=== PATIENT | female | born 2000 | race Caucasian/White ===

== ENCOUNTER 2022-04-12 08:08 | Emergency (ER) | payer BC, SELFPAY ==
[2022-04-12 08:19] VITALS: BP 123/77; PULSE 81; RESP 16; TEMP 37.1; O2SAT 100
--- NOTE | 2022-04-12 08:28 | ED.GENADULT ---
HPI - General Adult General Chief complaint: Urogenital-Female Stated complaint: UTI SYMPTOMS Source: patient Mode of arrival: ambulatory Limitations: no limitations History of Present Illness HPI narrative: Patient presents for evaluation of what she believes is a urinary tract infection. Over the last 2 days she is experienced urinary urgency, foul smell to her urine and cloudy appearance of the urine. She has urinary urgency without frequency or gross hematuria. She denies any fever, chills, nausea, vomiting, abdominal pain, low back pain. No vaginal discharge. LMP 03/19 through 03/24/2022. She is sexually active with one partner and uses protection. No additional complaints or concerns. Related Data Allergies Allergy/AdvReac Type Severity Reaction Status Date / Time No Known Allergies Allergy Verified 04/12/22 08:42 Review of Systems Review of Systems: CONSTITUTIONAL: Denies fever, chills, or sweats. EYES: Denies visual changes, redness, or discharge. ENT: Denies rhinorrhea, congestion, sore throat, or otalgia. CARDIOVASCULAR: Denies chest pain, palpitations, or edema. RESPIRATORY: Denies cough or dyspnea. GASTROINTESTINAL: Denies abdominal pain, nausea, vomiting, or diarrhea. GENITOURINARY: Reports urinary urgency, foul smelling urine and cloudy appearance of her urine. She denies frequency or gross hematuria SKIN: Denies rash or itching. MUSCULOSKELETAL: Denies back pain, joint pain, or myalgia. NEUROLOGIC: Denies headache, numbness, dizziness, or weakness. PSYCHIATRIC: Denies anxiety or depression. [facility] Past Medical History Medical History (Updated 04/12/22 @ 08:42 by TYLER Lovelace, ) No pertinent past medical history Surgical History Surgical History No pertinent past surgical history Family History Family History Mother Family history non-contributory Social History Social History Alcohol intake: current Alcohol use details: social Substance use: never Gender identity (if verbalized by the patient): Female Spiritual care concerns: No Exam Narrative: GENERAL: Well-appearing, well-nourished, and in no acute distress. HEAD: Normocephalic, atraumatic. EYES: PERRLA and EOMI. ENT: Nares clear, no rhinorrhea or epistaxis. Mucous membranes moist. Oropharynx without tonsillar hypertrophy exudate or other lesions. Bilateral TMs pearly laird nonbulging NECK: Supple. No adenopathy or masses. No carotid bruits or JVD CHEST: Clear to auscultation. No respiratory distress. No wheezes rales or rhonchi HEART: Regular rate and rhythm. No murmur heard. Normal peripheral pulses. ABDOMEN: Soft, nontender, nondistended, normal active bowel sounds. GENITAL: No external genital lesions. No adnexal tenderness. No cervical motion tenderness. Small amount of thick clumpy yellow discharge in vaginal vault BACK: No CVA tenderness EXTREMITIES: Normal range of motion. No edema. SKIN: Warm, dry, no rash. NEURO: No focal deficits. Alert and oriented x3. PSYCH: Normal mood and affect. Course Course Emergency Course: This is a 21-year-old female who presented for evaluation of urinary symptoms. No evidence of infection in urine today. She did have some microscopic hematuria and was advised to follow-up for that outpatient with primary care provider. She does have some vaginal discharge on exam. Discussed empiric treatment for STI, BV, vaginal candidiasis. She declined empiric treatment for STI but would like to be treated for BV and vaginal candidiasis. Prescription for Flagyl and Diflucan sent. Follow-up outpatient for further evaluation and treatment and go to the ER for intractable pain or worsening symptoms. Patient in agreement with plan of care. Level of Care: Express Care Visit Vital Signs Vital signs: Vital Si
--- NOTE | 2022-04-12 08:36 | PC.NURSE ---
0836 pelvic exam completed by provider, specimens collected. Patient tolerated well.
== END 2022-04-12 08:50 | disposition home or self-care (01) ==
PROVIDERS: Emergency Provider Nurse Practitioner
DX: N76.0 Acute vaginitis (principal); R31.29 Other microscopic hematuria; B96.20 Unspecified Escherichia coli [E. coli] as the cause of diseases classified elsewhere
CPT/HCPCS: 81003; 87070; 87077; 87086; 87186; 87491; 87591; 87661; 99214; G0463

== ENCOUNTER 2023-11-09 08:19 | Emergency (ER) | payer BC, SELFPAY ==
[2023-11-09 08:29] VITALS: BP 94/79; PULSE 83; RESP 16; TEMP 37; O2SAT 100
--- NOTE | 2023-11-09 08:42 | ED.URI ---
HPI - URI/Sore Throat General Stated Complaint: Strep Symptoms Time Seen by Provider: 11/09/23 08:42 History of Present Illness HPI Narrative: 23-year-old female presented for complaint of sore throat and mild nasal drainage. Onset 4 days. She tested negative for COVID at home yesterday. 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 states her boyfriend has similar symptoms. She denies shortness of, wheezing nausea vomiting diarrhea, fevers or chills. Related Data Allergies Allergy/AdvReac Type Severity Reaction Status Date / Time No Known Allergies Allergy Verified 04/12/22 08:42 Review of Systems Review of Systems: CONSTITUTIONAL: Denies body aches, fever, chills, or sweats. EYES: Denies visual changes, redness, or discharge. ENT: Reports sore throat Denies rhinorrhea, congestion, or otalgia. CARDIOVASCULAR: Denies chest pain, palpitations, or edema. RESPIRATORY: Denies dyspnea. GASTROINTESTINAL: Denies abdominal pain, nausea, vomiting, or diarrhea. SKIN: Denies rash, itching, or wounds. MUSCULOSKELETAL: Denies back pain, joint pain, or myalgia. NEUROLOGIC: Denies headache PMFSH Past Medical History Medical History No pertinent past medical history Surgical History Surgical History No pertinent past surgical history Family History Family History Mother Family history non-contributory Social History Social History Alcohol intake: current Alcohol use details: social Substance use: never Gender identity (if verbalized by the patient): Female Spiritual care concerns: No Exam Narrative: GENERAL: well-appearing, no acute distress. EYES: conjunctivae clear ENT: Mucous membranes moist. TMs pearly laird with normal light reflex bilaterally; no tragal tenderness. Oropharynx not erythematous; Tonsils not enlarged and without exudate. No drooling, no hoarseness, no trismus, uvula midline. No tripod positioning, hot potato voice, or soft palate swelling. NECK: Supple. No lymphadenopathy CHEST: Clear to auscultation, breath sounds equal. HEART: Regular rate and rhythm. No murmur heard. SKIN: Warm, dry, no rash. NEURO: Alert and oriented x3. Course Course Emergency Course: Patient is aware of diagnosis, understands and agrees to treatment plan. Anticipatory guidance given. Patient agrees to follow-up as directed and is aware of reasons to seek care at the emergency department. Portions of this record may have been created with voice recognition software Level of Care: Express Care Visit Vital Signs Vital signs: Vital Signs Temperature 98.6 F 11/09/23 08:29 Pulse Rate 83 11/09/23 08:29 Respiratory Rate 16 11/09/23 08:29 Blood Pressure 94/79 L 11/09/23 08:29 Pulse Oximetry 100 11/09/23 08:29 Oxygen Delivery Room Air 11/09/23 08:29 Temperature 98.6 F 11/09/23 08:29 Pulse Rate 83 11/09/23 08:29 Respiratory Rate 16 11/09/23 08:29 Blood Pressure 94/79 L 11/09/23 08:29 Pulse Oximetry 100 11/09/23 08:29 Oxygen Delivery Room Air 11/09/23 08:29 MDM - URI/Sore Throat MDM Narrative Medical decision making narrative: neg strep result reviewed with pt. Advise supportive treatments. Patient is appropriate for outpatient treatment and follow-up. Differential Diagnosis Differential diagnosis: Likely upper respiratory infection, viral infection and pharyngitis Lab Data Labs: Strep Screen Presumptive Negative *(Reference Range: Negative)* Discharge Plan Discharge Clinical Impression: Pharyngitis Qualifiers: Pharyngitis/tonsillitis etiology: unspecified etiology Qualified Code(s): J02.9 - Acute pharyngitis, unspecified Patient Disposition: Home, Self-Care Condition
== END 2023-11-09 08:51 | disposition home or self-care (01) ==
PROVIDERS: Emergency Provider Nurse Practitioner Family
DX: J02.9 Acute pharyngitis, unspecified (principal)
CPT/HCPCS: 87081; 87880; 99213; G0463